=== PATIENT | male | born 1975 | race Caucasian/White ===

== ENCOUNTER 2018-05-18 12:41 | Emergency (ER) | payer SELFPAY ==
[~2018-05-18] VITALS: Ht 165.1 cm; Wt 76.2 kg
[2018-05-18] MEDS ORDERED: ASPIRIN 81 MG TAB.CHEW PO ONE (13:00)
[2018-05-18 13:11] LABS: BASO # 0.1 x10^3/uL (0.0-0.2); BASO % 1 % (0-3); EOS # 0.2 x10^3/uL (0.0-0.7); EOS % 2 % (0-3); HEMATOCRIT 46.3 % (39.0-53.0); HEMOGLOBIN 15.9 g/dL (13.0-17.5); LYMPH # 1.4 x10^3/uL (1.0-4.8); LYMPH % 22 % (24-48); MEAN CORPUSCULAR HEMOGLOBIN 33 pg (25-35); MEAN CORPUSCULAR HGB CONC 34 g/dL (31-37); MEAN CORPUSCULAR VOLUME 96 fL (79-100); MONO # 0.4 x10^3/uL (0.0-1.1); MONO % 6 % (0-9); NEUT # 4.3 x10^3uL (1.8-7.7); NEUT % 68 % (31-73); PLATELET COUNT 248 x10^3/uL (140-400); RED BLOOD COUNT 4.85 x10^6/uL (4.30-5.70); RED CELL DISTRIBUTION WIDTH 14.5 % (11.5-14.5); WHITE BLOOD COUNT 6.3 x10^3/uL (4.0-11.0)
[2018-05-18 13:27] LABS: BARBITURATES NEG (NEG); BENZODIAZEPINES NEG (NEG); CANNABINOIDS NEG (NEG); COCAINE NEG (NEG); METHADONE NEG (NEG); OPIATES NEG (NEG); PHENCYCLIDINE NEG (NEG)
[2018-05-18 13:28] LABS: AMPHETAMINE/METHAMPHETAMINE NEG (NEG)
[2018-05-18 13:35] LABS: ALBUMIN 3.7 g/dL (3.4-5.0); CALCIUM 8.9 mg/dL (8.5-10.1); GFR 81.2; POTASSIUM 3.9 mmol/L (3.5-5.1); TOTAL BILIRUBIN 0.3 mg/dL (0.2-1.0); TOTAL PROTEIN 7.4 g/dL (6.4-8.2)
--- NOTE | 2018-05-18 13:40 | RAD ---
PORTABLE CHEST 1V History: CHEST PAIN LAST 2 WEEKS, WORSE TODAY. Comparison: None. Heart size: Within normal limits. Martha/mediastinum: Aorta mildly tortuous. Lungs: No focal airspace consolidation. Pleura: No evidence of pleural effusion. Pneumothorax: None visualized Bones: Deformity of the left clavicle, may be due to an old fracture. Osteochondroma at the medial clavicle is also possible. Miscellaneous: Mild elevation of the left hemidiaphragm. Impression: 1. No evidence of acute infiltrate. 2. Deformity of the medial left clavicle, could be related to old trauma or lesion such as osteochondroma. Electronically signed by: Ric Delarosa MD (05/18/2018 1:36 PM) [id number]
--- NOTE | 2018-05-18 13:59 | PHYS DOC ---
Adult General Chief Complaint Chief Complaint: CHEST PAIN HPI HPI 43-year-old male patient without medical problem complaining of intermittent exertional chest pain in left side of his chest as a aching pain without radiation. Patient denies shortness of breath, nausea, dizziness, palpitation, focal neuro deficit, paresthesia. Patient states the pain usually lasts for 2 minutes and resolved with rest. Patient complaining of pain with movement and cough. Patient denies smoking or family history of coronary artery disease. Patient states he had more episodes of chest pain and this morning had dizziness and shortness of breath and was seen by his primary care physician, who recommended to come to emergency room for evaluation. Review of Systems Review of Systems Constitutional: Denies fever or chills [] Eyes: Denies change in visual acuity, redness, or eye pain [] HENT: Denies nasal congestion or sore throat [] Respiratory: Denies cough or shortness of breath [] Cardiovascular: No additional information not addressed in HPI [] GI: Denies abdominal pain, nausea, vomiting, bloody stools or diarrhea [] : Denies dysuria or hematuria [] Musculoskeletal: Denies back pain or joint pain [] Integument: Denies rash or skin lesions [] Neurologic: Denies headache, focal weakness or sensory changes [] Endocrine: Denies polyuria or polydipsia [] All other systems were reviewed and found to be within normal limits, except as documented in this note. Current Medications Current Medications Current Medications Medications (Trade) Dose Ordered Sig/Grant Start Time Stop Time Status Last Admin Dose Admin Aspirin (Children'S Aspirin) 324 mg 1X ONCE 05/18/18 13:00 05/18/18 13:18 DC 05/18/18 13:38 81 MG Allergies Allergies Allergies Coded Allergies Type Severity Reaction Last Updated Verified Penicillins Allergy Intermediate 05/18/18 Yes Physical Exam Physical Exam Constitutional: Well developed, well nourished, no acute distress, non-toxic appearance. [] HENT: Normocephalic, atraumatic, bilateral external ears normal, oropharynx moist, no oral exudates, nose normal. [] Eyes: PERRLA, EOMI, conjunctiva normal, no discharge. [] Neck: Normal range of motion, no tenderness, supple, no stridor. [] Cardiovascular:Heart rate regular rhythm, no murmur [] Lungs & Thorax: Bilateral breath sounds clear to auscultation [] Abdomen: Bowel sounds normal, soft, no tenderness, no masses, no pulsatile masses. [] Skin: Warm, dry, no erythema, no rash. [] Back: No tenderness, no CVA tenderness. [] Extremities: No tenderness, no cyanosis, no clubbing, ROM intact, no edema. [] Neurologic: Alert and oriented X 3, normal motor function, normal sensory function, no focal deficits noted. [] Psychologic: Affect normal, judgement normal, mood normal. [] Current Patient Data Lab Results Laboratory Tests Test 05/18/18 12:59 05/18/18 13:00 White Blood Count 6.3 x10^3/uL (4.0-11.0) Red Blood Count 4.85 x10^6/uL (4.30-5.70) Hemoglobin 15.9 g/dL (13.0-17.5) Hematocrit 46.3 % (39.0-53.0) Mean Corpuscular Volume 96 fL (79-100) Mean Corpuscular Hemoglobin 33 pg (25-35) Mean Corpuscular Hemoglobin Concent 34 g/dL (31-37) Red Cell Distribution Width 14.5 % (11.5-14.5) Platelet Count 248 x10^3/uL (140-400) Neutrophils (%) (Auto) 68 % (31-73) Lymphocytes (%) (Auto) 22 % (24-48) L Monocytes (%) (Auto) 6 % (0-9) Eosinophils (%) (Auto) 2 % (0-3) Basophils (%) (Auto) 1 % (0-3) Neutrophils # (Auto) 4.3 x10^3uL (1.8-7.7) Lymphocytes # (Auto) 1.4 x10^3/uL (1.0-4.8) Monocytes # (Auto) 0.4 x10^3/uL (0.0-1.1) Eosinophils # (Auto) 0.2 x10^3/uL (0.0-0.7) Basophils # (Auto) 0.1 x10^3/uL (0.0-0.2) Prothrombin Time 9.9 SEC (9.4-11.4) Prothrombin Time INR 1.0 (0.9-1.1) D-Dimer (Eunice) 0.33 mg/L (0.00-0.50) Sodium Level 137 mmol/L (136-145) Potassium Level 3.9 mmol/L (3.5-5.1) Chloride Level 104 mmol/L (98-107) Carbon Dioxide Level 26 mmol/L (21-32) Anion Gap 7 (6-14) Blood Urea Nitrogen 8 mg/dL (8-26) Creatinine 1.0 mg/dL (0.7-1.3) Estimated GFR (Cockcroft-Gault) 81.2 BUN/Creatinine Ratio 8 (6-20) Glucose Level 86 mg/dL (70-99) Calcium Level 8.9 mg/dL (8.5-10.1) Total Bilirubin 0.3 mg/dL (0.2-1.0) Aspartate Amino Transferase (AST) 23 U/L (15-37) Alanine Aminotransferase (ALT) 23 U/L (16-63) Alkaline Phosphatase 74 U/L (46-116) Creatine Kinase 159 U/L (39-308) Creatine Kinase MB (Mass) 1.1 ng/mL (0.0-3.6) Creatine Kinase MB Relative Index 0.7 % (0-4) Troponin I Quantitative < 0.017 ng/mL (0-0.055) NX-Nit-W-Type Natriuretic Peptide 28 pg/mL (0-124) Total Protein 7.4 g/dL (6.4-8.2) Albumin 3.7 g/dL (3.4-5.0) Albumin/Globulin Ratio 1.0 (1.0-1.7) Lipase 169 U/L (73-393) Ethyl Alcohol Level < 10 mg/dL (0-10) Urine Opiates Screen Neg (NEG) Urine Methadone Screen Neg (NEG) Urine Barbiturates Neg (NEG) Urine Phencyclidine Screen Neg (NEG) Urine Amphetamine/Methamphetamine Neg (NEG) Urine Benzodiazepines Screen Neg (NEG) Urine Cocaine Screen Neg (NEG) Urine Cannabinoids Screen Neg (NEG) Urine Ethyl Alcohol Pos (NEG) EKG EKG []EKG interpreted by me. EKG at 1248 showed normal sinus rhythm at rate of 92, incomplete right bundle branch block, T-wave abnormality in anteroseptal leads, no acute ST and T wave abnormality Radiology/Procedures Radiology/Procedures [][address] [address] IMAGING REPORT Signed PATIENT: PANCHO DUBOIS ACCOUNT: [id number] : 1975 LOCATION: ER AGE: 43 SEX: M EXAM STATUS: REG ER ORD. PHYSICIAN: JEROMY WHALEY MD REASON: chest pain PROCEDURE: PORTABLE CHEST 1V PORTABLE CHEST 1V History: CHEST PAIN LAST 2 WEEKS, WORSE TODAY. Comparison: None. Heart size: Within normal limits. Martha/mediastinum: Aorta mildly tortuous. Lungs: No focal airspace consolidation. Pleura: No evidence of pleural effusion. Pneumothorax: None visualized Bones: Deformity of the left clavicle, may be due to an old fracture. Osteochondroma at the medial clavicle is also possible. Miscellaneous: Mild elevation of the left hemidiaphragm. Impression: 1. No evidence of acute infiltrate. 2. Deformity of the medial left clavicle, could be related to old trauma or lesion such as osteochondroma. Electronically signed by: Ric Delarosa MD (05/18/2018 1:36 PM) [id number] DICTATED AND SIGNED BY: RIC DELAROSA MD DATE: 05/18/181321 CC: AUBREE MELGAR MD; JEROMY WHALEY MD ~ Course & Med Decision Making Course & Med Decision Making Pertinent Labs and Imaging studies reviewed. (See chart for details) Evaluation of patient in ER showed 43-year-old male patient sent from primary care physician for evaluation of episodes of chest pain for the last 14 weeks. Patient had unremarkable physical exam and labs and EKG and chest x-ray except for abnormality of left clavicular area that patient denies any remote history of injury. Patient informed to follow up with his primary care physician for outpatient evaluation of cardiac event and also abnormality of left clavicular area. [] Dragon Disclaimer Dragon Disclaimer This electronic medical record was generated, in whole or in part, using a voice recognition dictation system. Departure Departure: Impression: Primary Impression: Chest pain Additional Impression: Clavicular area fullness Disposition: 01 HOME, SELF-CARE (At 1357) Condition: STABLE Referrals: AUBREE MELGAR MD (PCP) Patient Instructions: Chest Pain (Nonspecific) Additional Instructions: Follow-up with your primary care physician in 2 or 3 days for more evaluation for heart problems Return to ER if not getting better Problem Qualifiers JEROMY WHALEY MD May 18, 2018 13:59
[2018-05-18 14:20] VITALS: BP 136/76
== END 2018-05-18 14:20 | disposition home or self-care (01) ==
LOC: ER 12:41
DX: R07.89 Other chest pain (principal); R42 Dizziness and giddiness; R22.1 Localized swelling, mass and lump, neck; Z88.0 Allergy status to penicillin
CPT/HCPCS: 36415; 71045; 80053; 80307; 82553; 83690; 83880; 84484; 85025; 85379; 85610; 99285; G0480; G0479